=== PATIENT | female | born 1990 | race Caucasian/White ===

== ENCOUNTER 2020-02-07 23:16 | Outpatient (CLI) | payer OTHER ==
[~2020-02-07] VITALS: Ht 165.1 cm; Wt 87.1 kg
[2020-02-07] MEDS ORDERED: PRENTAB9 PO (23:50)
[2020-02-07] MEDS ORDERED: ASPI81TA86 PO (23:50)
[2020-02-07] MEDS ORDERED: VITAD400CA FT (23:50)
--- NOTE | 2020-02-08 00:54 | IPNPDOC ---
Obstetrical Progress Note Date of Service Feb 08, 2020 Subjective 29yo at 35+3 presents for contractions and a 20 minute period of shivering. She reports the contractions are irregular, she denied n/v/d, cp,sob, valero, visual changes, f/c, vaginal bleeding, dc, urinary sx, decreased fm. Assessment Heart Rate (FHR): 130 Variability: Moderate Accelerations: Positive Decelerations: None Heart Rate Tracing: Category I Tocometer Contractions: Yes Frequency: irregular Sterile Vaginal Examination Dilation: None Station: -3 Cervical Consistency: Firm Postion/Presentation: Cephalic presentation (by US) Assessment and Plan Status: Reassuring Additional Comments 29yo at 35+3 presents for contractions and a 20 minute period of shivering. She has no other symptoms and normal vitals. The baby has a CAT I tracing and is reactive. On TAUS the baby is cephalic and has a MVP of 4.6cm. Her cervix is C/T/H. Labor is unlikley at this time. - routine OB return precautions provided - patient to otherwise follow up at her next HECTOR - patient to return if shivering episodes recurrent ANNA SALAZAR DO Feb 08, 2020 00:54
== END 2020-02-08 00:25 | disposition home or self-care (01) ==
LOC: M LDO 23:16
PROVIDERS: ATTEND Obstetrics & Gynecology
DX: O47.03 False labor before 37 completed weeks of gestation, third trimester (principal); Z3A.35 35 weeks gestation of pregnancy
CPT/HCPCS: 59025; 76815; G0378; G0463

== ENCOUNTER 2020-03-04 19:24 | Inpatient (IN) | payer OTHER ==
[2020-03-04] VITALS (11 sets, daily range): BP systolic 106–137; BP diastolic 57–74
[~2020-03-04] VITALS: Ht 165.1 cm; Wt 92.0 kg
[~2020-03-04 19:24] MED LIST: ASPI81TA86 PO; PRENTAB9 PO; VITAD400CA FT
--- NOTE | 2020-03-04 20:40 | HPEPDOC ---
Obstetrical History & Physical General Date of Admission Mar 04, 2020 at 19:24 History of Present Illness 29yo at 391wks presenting for IOL for CHTN (no meds). Patient reports feeling well. Denies VB, LOF, DFM, or regular ctx's. Information Provided By: Patient Care Care: Good Care Dating Final EDC: Mar 10, 2020 Final EDC for Daily Update: Mar 10, 2020 Final EDC by: LMP Antepartum Course Diagnos(e)s Chronic hypertension Height (inches): 65 Pre- weight (lbs.): 156 Admission Weight (lbs.): 194 Change in Weight (lbs.): 38 Past Medical History Past Obstetrical History : Past Obstetrical History: Multigravida ( - x2 with pelvis proven to [id number]) [employer] History: No pertinent history Past Medical History Medical History Chronic hypertension Surgical History: Denies/None Family History Significant Family History: Cancer, Hypertension, Lung disease Social History Marital Status: Family situation: Spouse/partner home Psychosocial History: No pertinent psych hx * Smoker: non-smoker Alcohol: Denies Drugs: denies Abuse Violence Screening Have you been hit/kicked/slapp: No Have you been sexually assault: No Imunizations Tdap status: current Influenza Status: declined Allergies Coded Allergies: No Known Allergies (Unverified , 02/07/20) Medications Scheduled No.137/Iron/Folic Acd ( Vitamin Tablet) 1 Each Tablet, 1 TAB PO DAILY Miscellaneous Medications Vitamin D (Vitamin D3) 10 Mcg Tablet, 400 MCG FT Physical Examination Physical Examination GENERAL: Alert and oriented times three. HEENT: NC/AT, airway patent and self-maintained ABDOMEN: Gravid and non-tender to touch. FETUS: Is vertex (VTX) by sterile vaginal examination (SVE), fetus is vertex (VTX) by Will. CARDS: well-perfused RESP: no exaggerated respiratory effort appreciated, no cough EXTREMITIES: No edema. Laboratory Data 24H LABS Laboratory Tests 2 03/04/20 19:38: Serology Scanned Report Hepatitis B Testing Pertinent Laboratoy Data Blood Type: A+ RBC Antibody Screen: Negative HIV: Negative Hepatitis B: Negative Rapid Plasma Reagin: Nonreactive Rubella: Immune Varicella: Immune Chlamydia/Gonorrhea: Negative Group B Streptococcus: Negative Cystic Fibrosis: Declined Glucose Tolerance Test: 140 (3hr normal) Anatomy Ultrasound Ultrasound Date: Feb 10, 2020 Placenta Location: Anterior Placenta Previa: No Estimated Weight (grams): 2571 Vaginal Examination Dilation: 2cm Effacement: 50% Station: -3 Cervical Consistency: Soft Cervical Position: Posterior Presentation: Cephalic presentation Assessment Heart Rate (FHR): 130 Variability: Moderate Accelerations: Positive Decelerations: None Tocometer Contractions: No Multi-drug resistant Organism: No history of MDRO Assessment/Plan Assessment Charlene is a 29o at 39+1wk presenting for IOL for CHTN (no meds). 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 Diet: regular as tolerated. Group B Streptococcus (GBS) negative. Labs and intravenous (IV) per unit protocol. Counseled on induction of labor (IOL) - patient elects to start with cytotec at this time. Lactated Ringers (LR): patient may have heplock if no epidural and tolerating PO. Anticipate normal spontaneous delivery (). C-S as appropriate. TRISTEN GRIFFITH DO Mar 04, 2020 20:39
[2020-03-04 21:12] LABS: HEMATOCRIT 31.3 % (36.0-47.0); HEMOGLOBIN 10.4 g/dl (12.0-15.5); MEAN CORPUSCULAR HEMOGLOBIN 30.2 pg (27.0-33.0); MEAN CORPUSCULAR HGB CONC 33.2 g/dl (32.0-36.5); PLATELET COUNT, AUTOMATED 191 10^3/uL (150-450); RED BLOOD COUNT 3.44 10^6/uL (4.00-5.40); WHITE BLOOD COUNT 10.3 10^3/uL (4.0-10.0)
[2020-03-05] VITALS (11 sets, daily range): BP systolic 99–133; BP diastolic 51–61
[2020-03-05] MEDS ORDERED: OXYTOCIN 30 UNITS IN 0.9% NaCl 500ML IV BAG (J2590) As Ordered ONE (09:59)
--- NOTE | 2020-03-05 10:47 | IPNPDOC ---
Obstetrical Progress Note Date of Service Mar 05, 2020 Subjective Late entry: Assessment and Exam at 0950 S: Charlene is a 29yo at 39+1wks who was admitted on 03/04 for IOL d/t CHTN (not on meds). Pt is now s/p Cytotec x2 and SROM at 0806 this morning with clear fluid. She reports contractions becoming stronger and more painful. She declines a desires for pain medication. Pt consents for cervical exam to determine if labor is progressing. Objective O: VSS, afebrile, normotensive FHR 140s, moderate variability, + accels, 1x isolated variable with SROM noted, eary deceleration noted CTX: moderate by palpation, regular intervals per patient and observation VE: 6/90/0, clear fluid and bloody show present Vital Signs Date Time Temp Pulse Resp B/P (MAP) Pulse Ox O2 Delivery O2 Flow Rate FiO2 03/05/20 04:21 97.6 79 17 113/61 (78) Sterile Vaginal Examination Postion/Presentation: Cephalic presentation Assessment and Plan Status: Reassuring Group B Streptococcus: Negative Anticipate: Vaginal Delivery Additional Comments A: 29yo at 39=1wks, IOL for CHTN, now in active labor s/p SROM; Category II FHT d/t variable, otherwise reassuring and reactive. P: Expectant management at this time Will consider pitocin if labor progress slows Close monitoring of maternal/ status Allow patient to move freely for pain control Epidural is available if she desires Anticipate Consult with OB as indicated JANET DOE CNM Mar 05, 2020 10:47
[2020-03-05] MEDS ORDERED: OXYTOCIN DRIP 30 UNITS in IV 1 EA IV SCH (11:41)
[2020-03-05] MEDS ORDERED: DIBUCAINE 1% OINTMENT 30GM TOP PRN (11:45)
[2020-03-05] MEDS ORDERED: ACETAMINOPHEN TAB 650MG DOSE (2X325MG) PO PRN (11:45)
[2020-03-05] MEDS ORDERED: ACETAMINOPHEN 500 MG TAB PO PRN (11:45)
[2020-03-05] MEDS ORDERED: DOCUSATE SODIUM 100 MG CAP PO PRN (11:45)
[2020-03-05] MEDS ORDERED: IBUPROFEN 600MG TAB PO PRN (11:45)
--- NOTE | 2020-03-05 11:56 | DNPDOC ---
[facility] Delivery Note Delivery Note DATE OF DELIVERY: 05MAR2020 at 1117 PREDELIVERY DIAGNOSIS: 39+1 weeks gestation, IOL for CHTN. POST DELIVERY DIAGNOSIS: Delivered PROCEDURE: Spontaneous vaginal delivery. 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 FINDINGS: 3440g (7lbs 9oz), female , Score 9/9, true knot in cord.. DELIVERY SUMMARY: Called to room for 29yo G3 now P3003 who had a strong urge to push. She was noted to be C/C/+2; once prepped, pt pushed through one contraction and delivered a viable female infant over a protected perineum. head delivered KANDACE and restituted to LOT; right anterior shoulder delivered with ease, followed by left posterior shoulder, then remainder of infant delivered to maternal abdomen where she was dried and stimulated; strong, lusty cry. Once cord stopped pulsating, clamped x2 and cut by FOB. Placenta delivered spontaneously and appeared intact, 3VC; pitocin bolus stated at this time; fundus firm, EBL 200mL) True knot present on cord. Upon inspection of vagina, perineum and cervix, no lacerations noted. Family bonding well, infant initiated immediately, anticipate uncomplicated PP course. JANET DOE CNM Mar 05, 2020 11:56
[2020-03-05] MEDS: IBUPROFEN 800 MG TAB PO PRN (13:30)
[2020-03-06 05:36] VITALS: BP 132/81
[2020-03-06] MEDS: IBUPROFEN 800 MG TAB PO PRN (07:37)
[2020-03-06] MEDS ORDERED: PRENATAL VITAMINS CHEWABLE TABLET PO SCH (09:00)
[2020-03-06] MEDS ORDERED: FERROUS SULFATE 325MG TAB PO SCH (09:00)
[2020-03-06] MEDS ORDERED: DIBU10OI TOP (12:25)
[2020-03-06] MEDS ORDERED: DOCU100C16 PO (12:25)
[2020-03-06] MEDS ORDERED: IBUP80TA PO (12:25)
--- NOTE | 2020-03-10 09:27 | DS ---
DATE OF ADMISSION: 03/04/2020 DATE OF DISCHARGE: 03/06/2020 A 29-year-old 3, now para 2, admitted for chronic hypertension, induction of labor at 39 and 1 weeks of gestation. She had a spontaneous vaginal delivery, female, 7 pounds 9 ounces, 3440 grams, scores of 9 and 9 at one and five minutes, respectively. Had a true knot in the cord. She has chronic hypertension, on no medications. Her admitting hemoglobin was 10.4, hematocrit 31.3, and platelets were 191. Her discharge blood pressure is 132/81, respirations 18, pulse 84, temperature 97.3. We discussed phlebitis, cystitis, mastitis, endometritis, and cellulitis, diet, exercise, pain management, perineal, breast, and wound care. The rest of the examination unremarkable. Normocephalic, atraumatic. Neck: Full range of motion. Pupils equal and reactive to light. Distal pulses are symmetric. No evidence of deep venous thrombosis (DVT), pulmonary embolus (PE), or superficial phlebitis. Chest is clear bilaterally to bases. No wheezes or rhonchi. No costovertebral angle (CVA) tenderness. Abdomen is soft. Four- quadrant bowel sounds are noted. Perineum is intact. She has no urgency or frequency. No nausea, vomiting, diarrhea, or constipation. Patient has medications dispensed at [facility]. Will have a 2-week blood pressure check and a 6-week check. Contraception will be discussed at that time. In summary, we have a term gestation, delivered a live- female. Discharged improved. Followup at [facility] as per protocol. All questions were answered. A 20-minute discussion. ANGELES
== END 2020-03-06 13:00 | disposition home or self-care (01) | DRG 807 ==
LOC: M LDI 19:24 → M OBS 03-05 13:28
PROC: 3E0DXGC Introduction of Other Therapeutic Substance into Mouth and Pharynx, External Approach (ICD-10-PCS; 2020-03-04)
PROC: 10E0XZZ Delivery of Products of Conception, External Approach (ICD-10-PCS; principal; 2020-03-05)
DX: O10.92 Unspecified pre-existing hypertension complicating childbirth (principal); Z37.0 Single live birth; Z3A.39 39 weeks gestation of pregnancy; O69.2XX0 Labor and delivery complicated by other cord entanglement, with compression, not applicable or unspecified

== ENCOUNTER 2020-03-11 20:17 | Emergency (ER) | payer OTHER ==
[~2020-03-11] VITALS: Ht 165.1 cm; Wt 82.7 kg
[~2020-03-11 20:17] MED LIST changes: +DIBU10OI TOP; +DOCU100C16 PO; +IBUP80TA PO
[2020-03-11] MEDS ORDERED: ACET1TAB55 PO (20:42)
--- NOTE | 2020-03-11 20:50 | REPVR ---
PROCEDURE INFORMATION: Exam: CT Head Without Contrast Exam date and time: 03/11/2020 8:34 PM Age: 29 years old Clinical indication: Pain; Headache; Additional info: Pre-eclampsia/eclampsia TECHNIQUE: Imaging protocol: Computed tomography of the head without contrast. Axial and coronal reformatted images were created and reviewed. Radiation optimization: All CT scans at this facility use at least one of these dose optimization techniques: automated exposure control; mA and/or kV adjustment per patient size (includes targeted exams where dose is matched to clinical indication); or iterative reconstruction. COMPARISON: No relevant prior studies available. FINDINGS: Brain: No CT evidence of acute intracranial hemorrhage or acute territorial infarction. No significant mass effect or midline shift. Basal cisterns patent. Cerebral ventricles: Normal in size and configuration. Bones/joints: No acute osseous abnormality. Paranasal sinuses: Unremarkable. No fluid levels. Mastoid air cells: Grossly unremarkable. Soft tissues: Grossly unremarkable. IMPRESSION: No CT evidence of acute intracranial pathology. Electronically signed by: Vinnie Bowles On 03/11/2020 20:50:32 PM
[2020-03-11 21:09] LABS: BASO # 0.1 10^3/uL (0.0-0.2); BASO % 0.5 % (0.0-1.0); EOS % 0.1 % (0.0-3.0); HEMATOCRIT 39.5 % (36.0-47.0); HEMOGLOBIN 12.8 g/dl (12.0-15.5); LYMPH # 1.1 10^3/uL (1.5-5.0); LYMPH % 12.3 % (24.0-44.0); MEAN CORPUSCULAR HEMOGLOBIN 29.2 pg (27.0-33.0); MEAN CORPUSCULAR HGB CONC 32.4 g/dl (32.0-36.5); MONO # 0.2 10^3/uL (0.0-0.8); MONO % 2.1 % (0.0-5.0); NEUTROPHILS # 7.7 10^3/uL (1.5-8.5); NEUTROPHILS % 84.1 % (36.0-66.0); PLATELET COUNT, AUTOMATED 251 10^3/uL (150-450); RED BLOOD COUNT 4.39 10^6/uL (4.00-5.40); WHITE BLOOD COUNT 9.1 10^3/uL (4.0-10.0)
[2020-03-11 21:32] LABS: ALT/SGPT 35 U/L (12-78); BILIRUBIN,DIRECT 0.1 MG/DL (0.0-0.2); BILIRUBIN,TOTAL 0.4 MG/DL (0.2-1.0); BLOOD UREA NITROGEN 15 MG/DL (7-18); CALCIUM LEVEL 8.2 MG/DL (8.5-10.1); CARBON DIOXIDE LEVEL 21 MEQ/L (21-32); CHLORIDE LEVEL 111 MEQ/L (98-107); CREATININE FOR GFR 0.81 MG/DL (0.55-1.30); GLOMERULAR FILTRATION RATE > 60.0 (>60); GLUCOSE, FASTING 120 MG/DL (70-100); POTASSIUM SERUM 4.1 MEQ/L (3.5-5.1); SODIUM LEVEL 141 MEQ/L (136-145); TOTAL PROTEIN 6.4 GM/DL (6.4-8.2); URIC ACID 7.8 MG/DL (2.6-6.0)
[2020-03-11] MEDS ORDERED: NS 1,000 ML IV ONE ×2 (21:45→23:15)
[2020-03-11] MEDS ORDERED: METOCLOPRAMIDE INJ 10MG/2ML VIAL (J2765 PER 1) IV ONE (21:45)
[2020-03-11] MEDS ORDERED: KETOROLAC 30 MG/ML 1ML VIAL IV ONE (21:45)
[2020-03-11 22:30] LABS: APPEARANCE, URINE CLEAR (CLEAR); BACTERIA, URINE AUTO 1+ (NEGATIVE); BILIRUBIN, URINE AUTO NEGATIVE (NEGATIVE); BLOOD, URINE BLOOD 3+ (NEGATIVE); COLOR, URINE STRAW (YELLOW); GLUCOSE, URINE (UA) AUTO NEGATIVE (NEGATIVE); KETONE, URINE AUTO TRACE mg/dL (NEGATIVE); LEUKOCYTE ESTERASE, URINE AUTO NEGATIVE (NEGATIVE); NITRITE, URINE AUTO NEGATIVE (NEGATIVE); PROTEIN, URINE AUTO NEGATIVE (NEGATIVE); RBC, URINE AUTO 2 /HPF (0-3); SPECIFIC GRAVITY URINE AUTO 1.003 (1.002-1.035); SQUAMOUS EPITHELIAL CELL UR AU 1 /HPF (0-6); UROBILINOGEN, URINE AUTO 0.2 mg/dL (0.0-2.0); WBC, URINE AUTO 1 /HPF (0-3)
[2020-03-12 02:23] VITALS: BP 111/59
--- NOTE | 2020-03-12 19:18 | ECGEPIP ---
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
[2020-03-12] MEDS ORDERED: RIZA10TA58 PO (19:30)
[2020-03-12] MEDS ORDERED: MEDE1CRE EXT (22:26)
[2020-03-12] MEDS ORDERED: IBUP1TAB7 PO (22:26)
[2020-03-12] MEDS ORDERED: MAXA10TA15 PO (22:26)
[2020-03-12] MEDS ORDERED: DOCU100C16 PO (22:26)
[2020-03-12] MEDS ORDERED: ACET-907 PO (22:26)
[2020-03-12] MEDS ORDERED: PREN1TAB15 PO (22:26)
== END 2020-03-12 02:32 | disposition home or self-care (01) ==
LOC: M ED 20:17
DX: G43.909 Migraine, unspecified, not intractable, without status migrainosus (principal); R55 Syncope and collapse; R00.1 Bradycardia, unspecified; I10 Essential (primary) hypertension
CPT/HCPCS: 70450; 80048; 80076; 81001; 83605; 83735; 84550; 85025; 87086; 93005; 93041; 94760; 96361; 96374; 96375; 99285; J1885; J2765

== ENCOUNTER 2020-03-12 19:14 | Inpatient (IN) | payer OTHER ==
[~2020-03-12] VITALS: Ht 165.1 cm; Wt 82.9 kg
[~2020-03-12 19:14] MED LIST changes: +ACET1TAB55 PO
[2020-03-12] MEDS ORDERED: RIZA10TA58 PO (19:30)
[2020-03-12] MEDS ORDERED: hydrALAZINE 20MG/ML 1ML VIAL (J0360 PER 20MG) IV ONE (19:45)
[2020-03-12] MEDS ORDERED: NIFEdipine 30 MG XL TAB PO ONE (20:00)
[2020-03-12 20:39] LABS: BASO # 0.1 10^3/uL (0.0-0.2); BASO % 0.6 % (0.0-1.0); EOS # 0.1 10^3/uL (0.0-0.5); EOS % 1.3 % (0.0-3.0); HEMATOCRIT 40.3 % (36.0-47.0); HEMOGLOBIN 13.2 g/dl (12.0-15.5); LYMPH # 2.9 10^3/uL (1.5-5.0); LYMPH % 30.4 % (24.0-44.0); MEAN CORPUSCULAR HEMOGLOBIN 29.9 pg (27.0-33.0); MEAN CORPUSCULAR HGB CONC 32.8 g/dl (32.0-36.5); MEAN CORPUSCULAR VOLUME 91.4 fl (80.0-96.0); MONO # 0.6 10^3/uL (0.0-0.8); MONO % 6.3 % (0.0-5.0); NEUTROPHILS # 5.8 10^3/uL (1.5-8.5); NEUTROPHILS % 60.9 % (36.0-66.0); PLATELET COUNT, AUTOMATED 248 10^3/uL (150-450); RED BLOOD COUNT 4.41 10^6/uL (4.00-5.40); WHITE BLOOD COUNT 9.5 10^3/uL (4.0-10.0)
[2020-03-12 20:55] LABS: INR 1.07; PROTHROMBIN TIME 14.1 SECONDS (12.5-14.3)
[2020-03-12 20:56] LABS: PARTIAL THROMBOPLASTIN TIME 29.1 SECONDS (24.2-38.5)
--- NOTE | 2020-03-12 21:20 | REPVR ---
PROCEDURE INFORMATION: Exam: XR Chest, 1 View Exam date and time: 03/12/20 (9:00pm) Age: 29 years old Clinical indication: Chest pain TECHNIQUE: Imaging protocol: Portable CXR Views: 1 view COMPARISON: No relevant prior studies available FINDINGS: Lungs: Unremarkable. No consolidation. Pleural space: Unremarkable. No pleural effusions. No pneumothorax. Heart/Mediastinum: Unremarkable. No cardiomegaly. Bones/joints: Unremarkable. IMPRESSION: No acute findings. Clear lung rees. Electronically signed by: Shaneka Conde On 03/12/2020 21:20:19 PM
[2020-03-12] MEDS ORDERED: ACETAMINOPHEN 325 MG TAB As Ordered ONE (22:15)
[2020-03-12] MEDS ORDERED: ACETAMINOPHEN TAB 650MG DOSE (2X325MG) PO ONE (22:15)
[2020-03-12 22:20] LABS: ALT/SGPT 32 U/L (12-78); BILIRUBIN,DIRECT 0.1 MG/DL (0.0-0.2); BILIRUBIN,TOTAL 0.5 MG/DL (0.2-1.0); BLOOD UREA NITROGEN 15 MG/DL (7-18); CALCIUM LEVEL 8.2 MG/DL (8.5-10.1); CARBON DIOXIDE LEVEL 16 MEQ/L (21-32); CHLORIDE LEVEL 116 MEQ/L (98-107); CK-MB VALUE MASS 1.9 NG/ML (<3.6); CPK CREATINE PHOSPHOKINASE 273 U/L (26-192); CREATININE FOR GFR 0.63 MG/DL (0.55-1.30); GLOMERULAR FILTRATION RATE > 60.0 (>60); GLUCOSE, FASTING 91 MG/DL (70-100); SODIUM LEVEL 143 MEQ/L (136-145); TOTAL PROTEIN 6.3 GM/DL (6.4-8.2); TROPONIN I 0.04 NG/ML (< 0.10)
[2020-03-12] MEDS ORDERED: IBUP1TAB7 PO (22:26)
[2020-03-12] MEDS ORDERED: MEDE1CRE EXT (22:26)
[2020-03-12] MEDS ORDERED: ACET-907 PO (22:26)
[2020-03-12] MEDS ORDERED: MAXA10TA15 PO (22:26)
[2020-03-12] MEDS ORDERED: DOCU100C16 PO (22:26)
[2020-03-12] MEDS ORDERED: PREN1TAB15 PO (22:26)
[2020-03-13] VITALS (9 sets, daily range): BP systolic 120–165; BP diastolic 68–98
--- NOTE | 2020-03-13 01:15 | HPEPDOC ---
General Date of Admission Mar 12, 2020 at 22:10 Date of Service: Mar 12, 2020 Attending Physician: TRISTEN GRIFFITH DO Chief Complaint Headache, high blood pressure Source: Patient History of Present Illness 29yo PPD#7 s/p after IOL for CHTN (no meds). Patient reports that she had severe headache yesterday morning so bad that she passed out due to pain and feeling ill. She was brought to ER via EMS with normal BP noted and benign workup. Her headache was treated with toradol and reglan with resolution and she was discharged home. She had been counseled to drink extra caffeine by RN per patient report. She notes that several hours after discharge from ER, she developed headache again reporting that her headache improves with standing and sitting but worsened with lying down. She reported to clinic staff that her headache seemed to be migraine in nature and she was given Maxalt and Fioricet for treatment. She then noted that she wasn't feeling well and checked her blood pressure getting readings of 190/100s. She was advised by on-call provider to present to ER for re-evaluation. In ER, her preeclampsia labs were normal with no proteinuria seen on UA. She was given hydralazine 10mg IV and adalatXL 60mg with improvement in her BP to mild-range. Patient reported improvement in her headache with improvement in her BP. Due to requiring IV antihypertensives, decision made to admit for monitoring BP. Home Medications Scheduled Docusate Sodium (Docusate Sodium) 100 Mg Capsule, 100 MG PO BID, (Reported) Pnv,Calcium 72/Iron/Folic Acid ( Vitamin Plus Low Iron) 1 Each Tablet, 1 TAB PO QHS, (Reported) Scheduled PRN Acetaminophen (Tylenol) 325 Mg Tablet, 650 MG PO Q4H PRN for HEADACHE OR PAIN, (Reported) Ibuprofen (Ibuprofen) 800 Mg Tablet, 800 MG PO Q8H PRN for PAIN, (Reported) Lanolin (Tender Care Lanolin) 59 Ml Cream.ml., 1 DOSE EXT ASDIRECTED PRN for DRY SKIN, (Reported) APPLY TO NIPPLES NEEDED FOR DRYNESS, CRACKED SKIN OR SORENESS Rizatriptan Benzoate (Maxalt Oil Expeller) 10 Mg Tab.rapdis, 10 MG PO BID PRN for MIGRAINE, (Reported) Allergies Coded Allergies: No Known Allergies (Unverified , 03/11/20) Past Medical History Medical History CHTN Surgical History Denies Family History Significant Family History: Hypertension, Lung disease Social History * Smoker: Denies Alcohol: Denies Drugs: denies Psychosocial History: No pertinent psych hx A-FIB/CHADSVASC A-FIB History Current/History of A-Fib/PAF?: No Review of Systems Constitutional: Reports: Fatigue, Weight Loss, Lethargy, Other; Denies: Chills, Fever, Malaise, Night Sweats, Weakness Eyes: Reports: Vision change (reports having haze around lights) ENT: Reports: Head Aches, Dysphagia, Sinus Congestion, Epistaxis, Other Symptoms; Denies: Ear Pain, Post Nasal Drip, Sore Throat Pulmonary: Denies: Dyspnea, Cough Cardiovascular: Denies: Chest Pain, Palpitations, Orthopnea, Edema, Lt Headedness Gastrointestinal: Denies: Nausea, Vomiting, Abdominal Pain, Diarrhea, Constipation Genitourinary: Denies: Dysuria Musculoskeletal: Denies: Back Pain Neurological: Denies: Weakness, Numbness, Change in speech Psych: Reports: Mood Normal Physical Examination General Exam: Positive: Alert, Cooperative, No Acute Distress Eye Exam: Positive: Conjunctiva & lids normal ENT Exam: Positive: Atraumatic, Nares Patent Heart Exam: Positive: Rate Normal Abdomen Exam: Positive: Soft; Negative: Tenderness Extremity Exam: Positive: Normal pulses; Negative: Edema Neuro Exam: Positive: Normal Gait, Normal Speech Psych Exam: Positive: Mental status NL, Mood NL, Anxiety, Oriented x 3 Vital Signs Vital Signs Date Time Temp Pulse Resp B/P (MAP) Pulse Ox O2 Delivery O2 Flow Rate FiO2 03/13/20 00:38 165/93 03/12/20 23:14 59 15 99 Room Air 03/12/20 19:15 97.9 Laboratory Data Labs 24H Laboratory Tests 2 03/12/20 20:22: Urine Color COLORLESS, Urine Appearance CLEAR, Urine pH 6.0, Urine Specific [place] 1.003, Urine Protein NEGATIVE, Urine Glucose (UA) NEGATIVE, Urine Ketones NEGATIVE, Urine Blood 2+H, Urine Nitrite NEGATIVE, Urine Bilirubin NEGATIVE, Urine Urobilinogen 0.2, Urine Leukocyte Esterase NEGATIVE, Urine WBC (Auto) 0, Urine RBC (Auto) 0, Urine Hyaline Casts (Auto) 0, Urine Bacteria (Auto) NEGATIVE, Urine Squamous Epithelial Cells 0, Urine Sperm (Auto) 03/12/20 20:23: Immature Granulocyte % (Auto) 0.5, Neutrophils (%) (Auto) 60.9, Lymphocytes (%) (Auto) 30.4, Monocytes (%) (Auto) 6.3H, Eosinophils (%) (Auto) 1.3, Basophils (%) (Auto) 0.6, Neutrophils # (Auto) 5.8, Lymphocytes # (Auto) 2.9, Monocytes # (Auto) 0.6, Eosinophils # (Auto) 0.1, Basophils # (Auto) 0.1, Nucleated Red Blood Cells % (auto) 0.0, Prothrombin Time 14.1H, Prothromb Time International Ratio 1.07, Activated Partial Thromboplast Time 29.1 03/12/20 21:44: Anion Gap 11, Glomerular Filtration Rate > 60.0, Calcium Level 8.2L, Total Bilirubin 0.5, Direct Bilirubin 0.1, Aspartate Amino Transf (AST/SGOT) 24, Alanine Aminotransferase (ALT/SGPT) 32, Alkaline Phosphatase 92, Total Creatine Kinase 273H, Creatine Kinase MB 1.9, Creatine Kinase MB Relative Index 0.70, Troponin I 0.04, Total Protein 6.3L, Albumin 3.0L, Albumin/Globulin Ratio 0.9L 03/12/20 22:45: Syphilis Serology NONREACTIVE CBC/BMP Laboratory Tests 03/12/20 20:23 03/12/20 21:44 Assessment/Plan 29yo PPD#7 s/p presented to ER and noted to have hypertensive urgency. Given clinical picture of patient having h/o CHTN and taking caffeine and maxalt, which can lead to hypertension, in the setting of normal preeclampsia labs and patient symptomatically having headache resolved with improvement in blood pressure, less likely preeclamptic picture. Admit to inpatient [facility] for close monitoring of BP Patient started on 60mg of adalat XL in ER but was noted to be 165/93 on admission to the [facility] so given additional 30mg of adalat XL. Tylenol/motrin PRN pain Encourage with support PRN Encourage regular diet as tolerated Monitor vitals q4hr Encourage ambulation OOB as tolerated Low threshold to start magnesium therapy if clinical indication develops Problems (1) Hypertension Status: Acute Plan / VTE VTE Prophylaxis Ordered?: Yes (ambulation OOB) TRISTEN GRIFFITH DO Mar 13, 2020 01:11
--- NOTE | 2020-03-13 02:03 | IPNPDOC ---
Progress Note Date of Service: Mar 13, 2020 Progress Note Notified by RN that patient's BP was still severe-ranging of 164/98 1 hour after receiving additional 30mg of adalat PO. RN reports patient's headache improved with Motrin and that patient has no complaints at this time. Will add 100mg labetalol now and start 100mg labetalol BID in addition to current 90mg adalat daily. Will continue to closely monitor for goal of BP control in normal to mild-range and patient clinically stable. VS, I&O[facility]/I&O Vital Signs Date Time Temp Pulse Resp B/P (MAP) Pulse Ox O2 Delivery O2 Flow Rate FiO2 03/13/20 01:58 57 164/98 03/13/20 00:30 18 100 Room Air 03/12/20 19:15 97.9 Laboratory Data 24H LABS Laboratory Tests 2 03/12/20 20:22: Urine Color COLORLESS, Urine Appearance CLEAR, Urine pH 6.0, Urine Specific [place] 1.003, Urine Protein NEGATIVE, Urine Glucose (UA) NEGATIVE, Urine Ketones NEGATIVE, Urine Blood 2+H, Urine Nitrite NEGATIVE, Urine Bilirubin N EGATIVE, Urine Urobilinogen 0.2, Urine Leukocyte Esterase NEGATIVE, Urine WBC (Auto) 0, Urine RBC (Auto) 0, Urine Hyaline Casts (Auto) 0, Urine Bacteria (Auto) NEGATIVE, Urine Squamous Epithelial Cells 0, Urine Sperm (Auto) 03/12/20 20:23: Immature Granulocyte % (Auto) 0.5, Neutrophils (%) (Auto) 60.9, Lymphocytes (%) (Auto) 30.4, Monocytes (%) (Auto) 6.3H, Eosinophils (%) (Auto) 1.3, Basophils (%) (Auto) 0.6, Neutrophils # (Auto) 5.8, Lymphocytes # (Auto) 2.9, Monocytes # (Auto) 0.6, Eosinophils # (Auto) 0.1, Basophils # (Auto) 0.1, Nucleated Red Blood Cells % (auto) 0.0, Prothrombin Time 14.1H, Prothromb Time International Ratio 1.07, Activated Partial Thromboplast Time 29.1 03/12/20 21:44: Anion Gap 11, Glomerular Filtration Rate > 60.0, Calcium Level 8.2L, Total Bilirubin 0.5, Direct Bilirubin 0.1, Aspartate Amino Transf (AST/SGOT) 24, Ala nine Aminotransferase (ALT/SGPT) 32, Alkaline Phosphatase 92, Total Creatine Kinase 273H, Creatine Kinase MB 1.9, Creatine Kinase MB Relative Index 0.70, Troponin I 0.04, Total Protein 6.3L, Albumin 3.0L, Albumin/Globulin Ratio 0.9L 03/12/20 22:45: Syphilis Serology NONREACTIVE CBC/BMP Laboratory Tests 03/12/20 20:23 03/12/20 21:44 TRISTEN GRIFFITH DO Mar 13, 2020 02:03
--- NOTE | 2020-03-13 05:50 | ECGEPIP ---
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
--- NOTE | 2020-03-13 08:30 | IPNPDOC ---
Progress Note Date of Service: Mar 13, 2020 Progress Note Patient reports her headache has resolved and she has gotten some sleep. Denies any concern at this time. Is very happy that baby was allowed to join her inpatient for and notes the is going well. GEN: AAOx3, in NAD HEENT: NC/AT, airway patent and self-maintained ABD: soft, NT/ND Fundus: firm at U-2 Ext: no edema A/P: 29yo s/p 1 week ago readmitted for hypertensive urgency. Patient currently on adalat 90mg QHS and labetalol 100mg BID now normotensive. Patient clinically improved since presentation. Will continue to monitor BP and if remains controlled after 24hrs, will plan for discharge home. VS, I&O, 24H, Fishbone Vital Signs/I&O Vital Signs Date Time Temp Pulse Resp B/P (MAP) Pulse Ox O2 Delivery O2 Flow Rate FiO2 03/13/20 06:00 97.7 54 16 125/77 (93) 97 Room Air Laboratory Data 24H LABS Laboratory Tests 2 03/12/20 20:22: Urine Color COLORLESS, Urine Appearance CLEAR, Urine pH 6.0, Urine Specific [place] 1.003, Urine Protein NEGATIVE, Urine Glucose (UA) NEGATIVE, Urine Ketones NEGATIVE, Urine Blood 2+H, Urine Nitrite NEGATIVE, Urine Bilirubin NEGATIVE, Urine Urobilinogen 0.2, Urine Leukocyte Esterase NEGATIVE, Urine WBC (Auto) 0, Urine RBC (Auto) 0, Urine Hyaline Casts (Auto) 0, Urine Bacteria (Auto) NEGATIVE, Urine Squamous Epithelial Cells 0, Urine Sperm (Auto) 03/12/20 20:23: Immature Granulocyte % (Auto) 0.5, Neutrophils (%) (Auto) 60.9, Lymphocytes (%) (Auto) 30.4, Monocytes (%) (Auto) 6.3H, Eosinophils (%) (Auto) 1.3, Basophils (%) (Auto) 0.6, Neutrophils # (Auto) 5.8, Lymphocytes # (Auto) 2.9, Monocytes # (Auto) 0.6, Eosinophils # (Auto) 0.1, Basophils # (Auto) 0.1, Nucleated Red Blood Cells % (auto) 0.0, Prothrombin Time 14.1H, Prothromb Time International Ratio 1.07, Activated Partial Thromboplast Time 29.1 03/12/20 21:44: Anion Gap 11, Glomerular Filtration Rate > 60.0, Calcium Level 8.2L, Total Bilirubin 0.5, Direct Bilirubin 0.1, Aspartate Amino Transf (AST/SGOT) 24, Alanine Aminotransferase (ALT/SGPT) 32, Alkaline Phosphatase 92, Total Creatine Kinase 273H, Creatine Kinase MB 1.9, Creatine Kinase MB Relative Index 0.70, Troponin I 0.04, Total Protein 6.3L, Albumin 3.0L, Albumin/Globulin Ratio 0.9L 03/12/20 22:45: Syphilis Serology NONREACTIVE CBC/BMP Laboratory Tests 03/12/20 20:23 03/12/20 21:44 TRISTEN GRIFFITH DO Mar 13, 2020 08:30
[2020-03-14 01:02] VITALS: BP 137/76
[2020-03-14 06:12] VITALS: BP 118/76
--- NOTE | 2020-03-14 08:58 | IPNPDOC ---
Text Note Date of Service The patient was seen on 03/14/20. NOTE 03/14/20 0853 AM PATIENT ADMITTED WITH HISTORY CHTN NO MEDS . ON DAY 7 SEVERE HEADACHE WITH OCULAR SYMPTOMS NO RELIEF FROM ADALAT AND FIORICET . PRESENTED TO ED WITH SEVERE RANGE BP 170/98, 165/93. REQUIRED IV ANTIHYPERTENSIVES , NOW ON PROCARDIA 90 MG AT HS AND LABETALOL 100 MG BID PO FEELS BETTER HEADACHE RESOLVED BP NORMALIZED 118/98, 126/71 PLAN HOME WITH MEDS AND RECHECK BP FT DRUM OB 48 HOURS .EXPRESSED UNDERSTANDING PAPER SCRIPTS GIVEN VS,Fishbone, I+O VS, Fishbone, I+O Vital Signs Date Time Temp Pulse Resp B/P (MAP) Pulse Ox O2 Delivery O2 Flow Rate FiO2 03/14/20 06:12 98.1 62 18 118/76 (90) 03/14/20 01:02 Room Air 03/13/20 20:28 99 I&O- Last 24 Hours up to 6 AM 03/14/20 06:00 Output Total 3000 ml Balance -3000 ml Ismael Bryan MD Mar 14, 2020 08:58
[2020-03-14] MEDS ORDERED: NIFE1TAB52 PO (09:03)
[2020-03-14] MEDS ORDERED: LABE10TAB PO (09:03)
[2020-03-14 09:31] VITALS: BP 128/75
== END 2020-03-14 10:05 | disposition home or self-care (01) | DRG 776 ==
LOC: M ED 19:14 → M ED INP 22:10 → M OBS 03-13 00:22
PROVIDERS: ATTEND Obstetrics & Gynecology
DX: O10.03 Pre-existing essential hypertension complicating the puerperium (principal); I16.0 Hypertensive urgency; O14.95 Unspecified pre-eclampsia, complicating the puerperium

== ENCOUNTER → 2020-04-17 | Outpatient (CLI) | payer OTHER ==
[~2020-04-17] MED LIST changes: +ACET-907 PO; +IBUP1TAB7 PO; +LABE10TAB PO; +MAXA10TA15 PO; +MEDE1CRE EXT; +NIFE1TAB52 PO; +PREN1TAB15 PO; +RIZA10TA58 PO
--- NOTE | 2020-04-21 07:07 | SLEEPHOME ---
DATE: 04/17/2020 ORDERED BY: Chris Sharp M.D. Diagnostic home sleep testing was performed due to concern for the obstructive sleep apnea syndrome in this patient with a history of snoring. For testing, a nocturnal T3 respiratory monitoring device was used. Continuous record was made of pulse, oxygen saturation, air flow, chest and abdominal strain, and body position. Nine hours and 59 minutes of data were reviewed. There were 5 hours and 19 minutes marked as time in bed. During the interval marked time in bed, there were only 10 respiratory events identified of 10 seconds in duration or greater for a respiratory event index within normal limits at 1.9. The events seen were of mixed variety. Snoring was noted. The snore index was 0.9%. Baseline pulse rate 65. Pulse rate range 47 to 103. Baseline saturation was 94%. Saturations fell only to 91%. Testing was performed in both supine and non-supine positions. IMPRESSION: Borderline diagnostic home sleep test with snoring and mild respiratory patterning. RECOMMENDATIONS: None. [facility]
== END ==
LOC: M SLEEP HO 10:22
PROVIDERS: ATTEND Internal Medicine Cardiovascular Disease
DX: R06.83 Snoring (principal)

== ENCOUNTER → 2020-04-20 | Outpatient (CLI) | payer OTHER ==
--- NOTE | 2020-04-20 08:38 | REP ---
INDICATION: ESSENTIAL HTN COMPARISON: None TECHNIQUE: Real time fuller scale ultrasound examination using curved array transducer followed by color Doppler evaluation of the renal vasculature. FINDINGS: The bilateral kidneys demonstrate normal contour, size, echogenicity, and reniform shape. Right kidney measures 10.6 x 4.9 x 5.1 cm. Left kidney measures 10.0 x 4.9 x 5.3 cm. Bladder is under distended. Color Doppler evaluation demonstrates normal renal arterial vasculature and wave patterns. Peak aortic velocity: 160.5 centimeters/second RIGHT KIDNEY Renal arterial velocity: 116.2 centimeters/second Renal-aortic ratio: 0.7 Intrarenal resistive indices: 0.63-0.67 Intrarenal acceleration times: 0.03-0.03 LEFT KIDNEY Renal arterial velocity: 116.7 centimeters/second Renal-aortic ratio: 0.7 Intrarenal resistive indices: 0.61-0.67 Intrarenal acceleration times: 0.04-0.06 IMPRESSION: 1. Kidneys appear normal. 2. Doppler interrogation without sonographic evidence for renal arterial stenosis. <Electronically signed by Sadiq Powers > 04/20/20 [id number]
== END ==
LOC: M RAD 06:40
PROVIDERS: ATTEND Internal Medicine Cardiovascular Disease
DX: I10 Essential (primary) hypertension (principal)

== ENCOUNTER → 2020-04-22 | Outpatient (CLI) | payer OTHER ==
[~2020-04-22] MED LIST changes: +LABE100T4 PO; -LABE10TAB PO
--- NOTE | 2020-04-22 10:34 | REP ---
INDICATION: ESSENTIAL HTN COMPARISON: None TECHNIQUE: Axial noncontrast images of the abdomen with coronal and sagittal reformations. This CT examination was performed using the following dose reduction techniques: Automated exposure control, adjustment of mA and/or kv according to the patient's size, and use of iterative reconstruction technique. FINDINGS: Lung bases are clear. Visualized heart and pericardium normal. Liver, spleen, pancreas, gallbladder, bilateral adrenal glands and kidneys are normal. Visualized enteric system is unremarkable and without obstruction or acute inflammatory process. No ascites. No free air. No adenopathy. No focal inflammatory stranding. Abdominal aorta without aneurysm. Musculoskeletal structures are intact and without acute osseous abnormality. IMPRESSION: No acute abdominal pathology appreciated. <Electronically signed by Sadiq Powers > 04/22/20 [id number]
== END ==
LOC: M RAD 09:36
PROVIDERS: ATTEND Internal Medicine Cardiovascular Disease
DX: E26.9 Hyperaldosteronism, unspecified (principal); I10 Essential (primary) hypertension

== ENCOUNTER 2021-10-23 12:16 | Emergency (ER) | payer OTHER ==
[~2021-10-23] VITALS: Ht 165.1 cm; Wt 73.6 kg
[~2021-10-23 12:16] MED LIST changes: -DIBU10OI TOP; +DIBU28OI2 TOP
[2021-10-23 14:23] LABS: HEMATOCRIT 45.5 % (36.0-47.0); HEMOGLOBIN 15.2 g/dl (12.0-15.5); MEAN CORPUSCULAR HEMOGLOBIN 30.8 pg (27.0-33.0); MEAN CORPUSCULAR HGB CONC 33.4 g/dl (32.0-36.5); MEAN CORPUSCULAR VOLUME 92.3 fl (80.0-96.0); PLATELET COUNT, AUTOMATED 223 10^3/uL (150-450); RED BLOOD COUNT 4.93 10^6/uL (4.00-5.40); WHITE BLOOD COUNT 7.3 10^3/uL (4.0-10.0)
[2021-10-23 14:50] LABS: BLOOD UREA NITROGEN 16 MG/DL (7-18); CALCIUM LEVEL 9.1 MG/DL (8.5-10.1); CARBON DIOXIDE LEVEL 28 MEQ/L (21-32); CHLORIDE LEVEL 112 MEQ/L (98-107); CREATININE FOR GFR 0.84 MG/DL (0.55-1.30); FREE T4 0.85 NG/DL (0.76-1.46); GLOMERULAR FILTRATION RATE > 60.0 (>60); GLUCOSE, FASTING 105 MG/DL (70-100); POTASSIUM SERUM 4.4 MEQ/L (3.5-5.1); SODIUM LEVEL 144 MEQ/L (136-145)
[2021-10-23 15:18] VITALS: BP 155/94
== END 2021-10-23 15:20 | disposition home or self-care (01) ==
LOC: M ED 12:16
DX: F41.9 Anxiety disorder, unspecified (principal); I16.0 Hypertensive urgency; Z79.899 Other long term (current) drug therapy

== ENCOUNTER 2021-10-27 11:44 | Emergency (ER) | payer OTHER ==
[~2021-10-27] VITALS: Ht 165.1 cm; Wt 77.2 kg
[2021-10-27] MEDS ORDERED: LABE200T3 PO (12:07)
[2021-10-27 13:39] LABS: BASO # 0.1 10^3/uL (0.0-0.2); EOS # 0.1 10^3/uL (0.0-0.5); HEMATOCRIT 42.8 % (36.0-47.0); HEMOGLOBIN 14.3 g/dl (12.0-15.5); LYMPH # 1.7 10^3/uL (1.5-5.0); LYMPH % 28.4 % (24.0-44.0); MEAN CORPUSCULAR HEMOGLOBIN 30.9 pg (27.0-33.0); MEAN CORPUSCULAR HGB CONC 33.4 g/dl (32.0-36.5); MEAN CORPUSCULAR VOLUME 92.4 fl (80.0-96.0); MONO # 0.3 10^3/uL (0.0-0.8); MONO % 4.2 % (2.0-8.0); NEUTROPHILS # 3.9 10^3/uL (1.5-8.5); NEUTROPHILS % 65.1 % (36.0-66.0); PLATELET COUNT, AUTOMATED 227 10^3/uL (150-450); RED BLOOD COUNT 4.63 10^6/uL (4.00-5.40); WHITE BLOOD COUNT 5.9 10^3/uL (4.0-10.0)
[2021-10-27 13:54] LABS: APPEARANCE, URINE CLEAR (CLEAR); BACTERIA, URINE AUTO 1+ (NEGATIVE); BILIRUBIN, URINE AUTO NEGATIVE (NEGATIVE); BLOOD, URINE BLOOD 2+ (NEGATIVE); COLOR, URINE STRAW (YELLOW); GLUCOSE, URINE (UA) AUTO NEGATIVE (NEGATIVE); KETONE, URINE AUTO TRACE mg/dL (NEGATIVE); LEUKOCYTE ESTERASE, URINE AUTO NEGATIVE (NEGATIVE); NITRITE, URINE AUTO NEGATIVE (NEGATIVE); PROTEIN, URINE AUTO NEGATIVE (NEGATIVE); RBC, URINE AUTO 0 /HPF (0-3); SPECIFIC GRAVITY URINE AUTO 1.005 (1.002-1.035); SQUAMOUS EPITHELIAL CELL UR AU 0 /HPF (0-6); UROBILINOGEN, URINE AUTO 0.2 mg/dL (0.0-2.0); WBC, URINE AUTO 1 /HPF (0-3)
[2021-10-27 13:57] LABS: HCG, SERUM QUALITATIVE NEGATIVE (NEGATIVE)
[2021-10-27 14:04] LABS: BLOOD UREA NITROGEN 17 MG/DL (7-18); CALCIUM LEVEL 9.8 MG/DL (8.5-10.1); CARBON DIOXIDE LEVEL 28 MEQ/L (21-32); CHLORIDE LEVEL 110 MEQ/L (98-107); GLOMERULAR FILTRATION RATE > 60.0 (>60); GLUCOSE, FASTING 96 MG/DL (70-100); POTASSIUM SERUM 4.7 MEQ/L (3.5-5.1); SODIUM LEVEL 142 MEQ/L (136-145)
[2021-10-27 14:21] VITALS: BP 139/85
== END 2021-10-27 14:23 | disposition home or self-care (01) ==
LOC: M ED 11:44
DX: I10 Essential (primary) hypertension (principal); R55 Syncope and collapse; T50.905A Adverse effect of unspecified drugs, medicaments and biological substances, initial encounter; Z79.899 Other long term (current) drug therapy

== ENCOUNTER → 2023-01-19 | Outpatient (CLI) | payer OTHER ==
[~2023-01-19] MED LIST changes: -LABE100T4 PO; +LABE100T6 PO; +LABE200T5 PO; -MAXA10TA15 PO; +RIZA10TA66 PO
== END ==
LOC: M RAD 07:35
PROVIDERS: ATTEND Internal Medicine Nephrology
DX: I15.0 Renovascular hypertension (principal)